=== PATIENT | male | born 1985 | race Caucasian/White ===

== ENCOUNTER 2018-12-26 14:23 | Emergency (ER) | payer SELFPAY ==
[2018-12-26 14:29] VITALS: BP 136/94
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
[2018-12-26] MEDS ORDERED: NAPR375T44 PO (15:01)
--- NOTE | 2018-12-26 15:37 | RADIOLOGY IMAGING REPORT ---
FACILITY: [facility] PATIENT NAME: José Stacy : 1985 MR: [id number] V: [id number] EXAM DATE: ORDERING PHYSICIAN: JANET SOUZA TECHNOLOGIST: Location: [facility] Patient: José Stacy : 1985 Visit/Account:[id number] Date of Sevice: 12/26/2018 KNEE 4 VIEW LEFT COMPARISON: None. HISTORY: Left knee pain after a fall TECHNIQUE: 3 views FINDINGS: BONES: There is no significant arthropathy. No definite fracture. 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 Otherwise the bones are normal in alignment is yola l. SOFT TISSUES: Negative. No visible soft tissue swelling. EFFUSION: None suggested. OTHER: Negative. IMPRESSION: Lucency in the left patella seen on the dedicated patellar view. 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 There is no definite left knee fra cture. Report Dictated By: Christopher Greene at 12/26/2018 3:32 PM Report E-Signed By: Christopher Greene at 12/26/2018 3:33 PM WSN:[id number]
== END 2018-12-26 15:30 | disposition home or self-care (01) ==
LOC: ER 14:33
DX: M25.562 Pain in left knee (principal)
CPT/HCPCS: 73564; 99283; L1830